=== PATIENT | male | born 1950 | race Caucasian/White ===

== ENCOUNTER 2017-03-15 05:49 | Inpatient (IN) | payer OTHER ==
[~2017-03-15 05:49] MED LIST: TRANEXAMIC ACID 1 MG in NS 100 ML IV ONE
[2017-03-15] MEDS ORDERED: ROPIVACAINE 0.2% 80 MG, EPINEPHrine 0.2 MG, KETOROLAC TROMETHAMINE 30 MG in SYRINGE 0 ML IU ONE (06:00)
[2017-03-15] MEDS ORDERED: POVIDONE-IODINE 20 ML in SODIUM CL IRRIG SOLUTION 500 ML IRR ONE (06:00)
[2017-03-15] MEDS ORDERED: TRANEXAMIC ACID 2,000 MG in NS 100 ML IV ONE (06:00)
[2017-03-15] MEDS ORDERED: ceFAZolin 2 GM/SWFI 2 GM/20 ML SYR IVP ONE (06:08)
[2017-03-15] MEDS ORDERED: ACETAMINOPHEN 325 MG TAB PO ONE (06:08)
[2017-03-15] MEDS ORDERED: FAMOTIDINE 20 MG TAB PO ONE (06:08)
[2017-03-15] MEDS ORDERED: DEXAMETHASONE 4 MG/ML VIAL IVP ONE (06:08)
[2017-03-15] MEDS ORDERED: LIDOCAINE 1% 2 ML INJ ONE (06:11)
[2017-03-15] MEDS ORDERED: LR 1,000 ML IV ONE (06:15)
[2017-03-15] MEDS ORDERED: LIDOCAINE 1% 2 ML INJ ID PRN (06:15)
[2017-03-15] MEDS ORDERED: ceFAZolin 1 GM/5 ML SYR ONE (06:16)
--- NOTE | 2017-03-15 06:51 | PDANEPAE ---
ANE History of Present Illness OA right hip for resurfacing ANE Past Medical History - Cardiovascular History Hx Hypertension: No Hx Arrhythmias: No Hx Chest Pain: No Hx Coronary Artery / Peripheral Vascular Disease: No Hx CHF / Valvular Disease: No Hx Palpitations: No - Pulmonary History Hx COPD: No Hx Asthma/Reactive Airway Disease: No Hx Recent Upper Respiratory Infection: No Hx Oxygen in Use at Home: No Hx Sleep Apnea: No Sleep Apnea Screening Result - Last Documented: Negative - Neurologic History Hx Cerebrovascular Accident: No Hx Seizures: No Hx Dementia: No - Endocrine History Hx Diabetes: No - Renal History Hx Renal Disorders: No - Liver History Hx Hepatic Disorders: No - Neurological & Psychiatric Hx Hx Neurological and Psychiatric Disorders: No - Cancer History Hx Cancer: Yes Cancer History Comment: skin cancer, red and blotchy - Congenital Disorder History Hx Congenital Disorders: No - GI History Hx Gastrointestinal Disorders: No - Other Health History Other Health History: none - Chronic Pain History Chronic Pain: No - Surgical History Prior Surgeries: left hip 1998, left knee 26yrs ago ANE Review of Systems Review of Systems: - Exercise capacity METS (RN): 6 METS ANE Patient History - Allergies Allergies/Adverse Reactions: rivaroxaban [From Xarelto] Allergy (Verified 02/15/17 13:23) Hematuria - Home Medications Home medications: home medication list seen and reviewed Home Medications: Acyclovir [Zovirax 400 mg (*)] 400 mg PO TID PRN 02/15/17 [Last Taken Unknown] Cephalexin [Keflex (*)] 1,000 mg PO DAILY PRN 02/15/17 [Last Taken Unknown] Herbals/Supplements -Info Only 1 ea PO DAILY 02/15/17 [Last Taken Unknown] - Smoking Hx Smoking Status: Never smoked - Family Anes Hx Family Hx Anesthesia Complications: none ANE Labs/Vital Signs - Vital Signs Height: 185.42 cm Weight: 96.162 kg ANE Physical Exam - Airway Neck exam: FROM Mallampati Score: Class 2 Mouth exam: normal dental/mouth exam - Pulmonary Pulmonary: no respiratory distress - Cardiovascular Cardiovascular: regular rate and rhythym - ASA Status ASA Status: II ANE Anesthesia Plan Anesthesia Plan: MAC, spinal
[2017-03-15] MEDS ORDERED: MIDAZOLAM 2 MG/2 ML VIAL IVP ONE (07:00)
[2017-03-15] MEDS ORDERED: MIDAZOLAM 2 MG/2 ML VIAL ONE (07:02)
[2017-03-15] MEDS ORDERED: PROPOFOL/EMULSION 500 MG/50 ML BOTTLE IV ONE ×2 (07:07→08:08)
[2017-03-15] MEDS ORDERED: LIDOCAINE 2% 5 ML SDV ONE (07:08)
[2017-03-15] MEDS ORDERED: fentaNYL 100 MCG/2 ML INJ IVP PRN (07:49)
[2017-03-15] MEDS ORDERED: HYDROmorphONE/DILAUDID 1 MG/ML INJ IVP PRN (07:49)
[2017-03-15] MEDS ORDERED: ONDANSETRON 4 MG/2 ML VIAL IVP PRN ×2 (07:49→09:25)
[2017-03-15] MEDS ORDERED: NALOXONE HCL 0.4 MG/ML INJ IVP PRN (07:49)
--- NOTE | 2017-03-15 09:13 | PDHPUP ---
History & Physical Update H&P update statement: This history and physical update is based on an assessment of the patient which was completed after admission or registration (within 24 hours), but prior to the surgery/procedure. H&P update: H&P reviewed & patient examined, no change in patient's condition since H&P completed
--- NOTE | 2017-03-15 09:15 | POSTOPPROG ---
Post Op Note Date of Operation: 03/15/17 Surgeon: Malick Groves Soap Maker: Lam Jara/Fermin Lr Anesthesiologist: Dr. Jesus Lutz Anesthesia: IV Sedation, Spinal Post-op Diagnosis: right hip advanced degenerative arthritis. Procedure: Right hip Blanche hip resurfacing a Inf/Abcess present in the surg proc area at time of surgery?: No EBL: [id number]
[2017-03-15] MEDS ORDERED: oxyCODONE IR 5 MG TAB PO PRN (09:25)
[2017-03-15] MEDS ORDERED: PROMETHAZINE HCL 25 MG/ML INJ IVP PRN (09:25)
[2017-03-15] MEDS ORDERED: traMADol 50 MG TAB PO PRN (09:25)
[2017-03-15] MEDS ORDERED: POLYETHYLENE GLYCOL 3350 17 GM PKT PO PRN (09:25)
[2017-03-15] MEDS ORDERED: LACTULOSE 20 GM/30 ML UDCUP PO PRN (09:25)
[2017-03-15] MEDS ORDERED: BISACODYL 10 MG SUPP PR PRN (09:25)
[2017-03-15] MEDS ORDERED: DIPHENOXYLATE/ATROPINE LOMOTIL 1 TAB PO PRN (09:25)
[2017-03-15] MEDS ORDERED: diphenhydrAMINE 25 MG CAP PO PRN (09:25)
[2017-03-15] MEDS ORDERED: PROMETHAZINE HCL 25 MG SUPPR PR PRN (09:25)
[2017-03-15] MEDS ORDERED: TEMAZEPAM 15 MG CAP PO PRN (09:25)
[2017-03-15] MEDS ORDERED: NS 500 ML IV PRN (09:25)
[2017-03-15] MEDS ORDERED: METOCLOPRAMIDE 10 MG/2 ML VIAL IVP PRN (09:25)
[2017-03-15] MEDS ORDERED: MAGNESIUM HYDROXIDE 30 ML UDCUP PO PRN (09:25)
[2017-03-15] MEDS ORDERED: ONDANSETRON DISINTEGRATING 4 MG TAB PO PRN (09:25)
[2017-03-15] MEDS ORDERED: CYCLOBENZAPRINE 10 MG TAB PO PRN (09:25)
--- NOTE | 2017-03-15 09:26 | POSTANESTH ---
Post Anesthetic Evaluation Cardiovascular Status: Normal, Stable Respiratory Status: Normal, Stable Level of Consciousness/Mental Status: Can Participate in Eval Pain Control: Adequate, Prn Tx Ordered Nausea/Vomiting Control: Adequate, Prn Tx Ordered Complications Possibly Related to Anesthesia: None Noted
[2017-03-15] MEDS ORDERED: LR 1,000 ML IV SCH (09:30)
[2017-03-15] MEDS: ACETAMINOPHEN 325 MG TAB PO SCH ×2 (11:55→18:04)
[2017-03-15] MEDS: TRANEXAMIC ACID 650 MG TAB PO SCH ×2 (11:56→20:34)
[2017-03-15] MEDS: ceFAZolin 2 GM/DEXTROSE 100 ML IV SCH ×2 (14:07→20:33)
[2017-03-15] MEDS: KETOROLAC 30 MG/1 ML SDV IVP PRN (18:06)
--- NOTE | 2017-03-15 18:56 | GOP ---
[f rep st] OPERATIVE REPORT DATE OF OPERATION: 03/15/2017 SURGEON: Malick Groves MD CLIENT SERVICES COORDINATOR: Lam Jara and Fermin Lr. ANESTHESIA: A combination of Marcaine, spinal, and IV sedation. ANESTHESIOLOGIST: Dr. Jesus Lutz. PREOPERATIVE DIAGNOSIS: Right hip severe degenerative arthritis. POSTOPERATIVE DIAGNOSIS: Right hip severe degenerative arthritis. PROCEDURE PERFORMED: A right hip Blanche hip resurfacing arthroplasty. FINDINGS: DESCRIPTION OF PROCEDURE: The patient was given 2 g of preoperative IV Ancef within 60 minutes of carreon rgery. He also received IV tranexamic acid at a dose of 20 mg/kg. He was placed on the operating ro om table and given spinal anesthesia with Marcaine by Dr. Lutz. He was then placed supine an d given IV sedation. A Deluca catheter was not used. He wore a compressive stocking and SCD on the n onoperative leg. He was rolled to the left lateral decubitus position. An axillary roll was used, a nd all pressure points were carefully padded. The position was secured with the pegboard table attac hment. I was careful to lock his pelvis in a vertical position. His perineum was isolated with plas tic adhesive drapes. His right hip and right lower extremity were prepped with ChloraPrep. They wer e draped free using sterile sheets, stockinette, and Ioban plastic adhesive drape. The World Health Organization time-out was performed to verify the correct patient identity and the c orrect surgical side and site. The Sheldahl time-out was also performed. I made a 7-inch straight oblique posterolateral hip skin incision. The subcutaneous tissues were sha rply divided, and hemostasis was obtained using electrocautery. The fascia fuentes was identified and s plit along the axis of its fibers. I then curved posteriorly and proximally, and split the fascia of the gluteus ismael and bluntly split the muscle fibers in line with their orientation. His sciatic nerve was identified and protected throughout the procedure. The Charnley self-retaining retractor was inserted. The external rotators and the posterior hip capsule were divided as separate layers at the base of the femoral neck, tagged, and reflected posteriorly. The gluteus ismael tendon was div ided and tagged in order to improve exposure and release tension on the sciatic nerve. His hip was dislocated posteriorly. I used a sizing gauge to check the diameter of the neck and conc luded that 52 mm was the proper head size. I performed a circumferential capsulotomy. I was able to retract the femoral head anteriorly and superiorly, and hold it out of place with appropriate retrac tors. The remnant of his damaged labrum was completely excised. His acetabulum was reamed sequentia lly up to 58 mm. I selected the Rogers Monoblock porous-coated acetabular component with an outs jess diameter of 58 mm. This was firmly impacted and was a very tight fit. I was careful to determin e proper inclination and anteversion. I used the transverse acetabular ligament and other acetabular bony landmarks to help me properly determine cup orientation. He had a small posterior-inferior ost eophyte which I removed with a rongeur. I was careful to leave a good lip of bone and capsule extend ing beyond the anterior-inferior lip of the metal cup. I then returned to preparation of the femoral head. Using appropriate jigs and guides, I inserted a guide pin in the femoral head and neck. I was careful to position it in such a way that there would be no notching of the neck. The large sterile metal goniometer was used to check the neck shaft angl e. I reamed over the guide pin and inserted the reaming guide. I then used the cylindrical reamer d own to the head and neck junction. This was followed by the flat reamer and the chamfer reamer. The head was sized for 52 mm. There was no impingement or damage to the neck. He had very good quality bone in his femoral head. I drilled a small hole in the lesser trochanter and inserted a suction ca nnula to create negative pressure in the medullary canal. Small holes were drilled on the flattened chamfer surfaces of the prepared head for cement anchors. The head was thoroughly cleaned with the pulsating lavage and carefully dried. I used a CarboJet dev ice to blow dry the cancellous surfaces. A single batch of Simplex cement with tobramycin was mixed. At about 50 seconds, I poured the liquid cement into the head component, inserted it onto the prepa red head, and impacted it into place. Excess cement was removed before it hardened. The acetabulum was irrigated, cleaned, and inspected, and the hip was reduced. Stability and range of motion were c hecked. I placed my finger along the anterior aspect of the acetabular component and flexed the hip to 110 degrees. There was no anterior impingement. The suction cannula on the lesser trochanter was removed. The wound was thoroughly irrigated 1 final time with a dilute Betadine solution. 40 mL of the joint anesthetic cocktail were injected into the capsule, the deep musculature, and subcutaneous tissues along the skin edges. His sciatic nerve was reinspected and looked unharmed. The external rotators and the posterior capsu le were repaired in separate layers with #2 FiberWire sutures through drill holes in the greater troc hanter. This provided a strong posterior capsular and external rotator repair. The gluteus ismael tendon was repaired with 2 interrupted [id number] #2 FiberWire sutures. The fascia fuentes was rep aired with 2 interrupted [id number] #2 FiberWire sutures followed by a running #2 barbed Ethicon Stratafix PDO suture. Subcutaneous tissues were closed with a running 0 barbed Ethicon Stratafix Mo noderm suture. The skin was closed with a running 3-0 barbed Ethicon Stratafix Monoderm subcuticular suture. The skin edges were reapproximated and sealed with Dermabond glue. The wound was covered w ith a strip of Telfa, and everything was held in place with a piece of clear plastic Tegaderm. The estimated blood loss was about 400 mL. I used a [employer] Rogers hip resurfacing system. The acetabular component was 58 mm in d iameter and press-fit. The femoral head was 52 mm and cemented. He was awakened from anesthesia and rolled to the supine position on his [facility]. A long-leg compressive stocking and SCD were applied to the operative leg. He wore a stocking and SCD on the opposite leg during the procedure. An abduction pillow was placed between his knees. He was taken to PACU in satisfactory condition. T here were no recognized intraoperative complications. The sponge and needle count were correct on 2 occasions. Lam Jara and Fermin Lr acted as surgical assistants. Their assistance was a medical necess ity for safe completion of the procedure. /[id number]/MODL
[2017-03-15] MEDS: FAMOTIDINE 20 MG TAB PO SCH (20:26)
[2017-03-15] MEDS: ASPIRIN 325 MG TAB PO SCH (20:33)
[2017-03-15] MEDS: SENNOSIDES/DOCUSATE SODIUM TAB PO SCH (20:33)
[2017-03-16] MEDS: TRANEXAMIC ACID 650 MG TAB PO SCH (00:52)
[2017-03-16] MEDS: ACETAMINOPHEN 325 MG TAB PO SCH ×2 (00:52→06:23)
[2017-03-16 05:07] LABS: HEMATOCRIT 38.6 % (40.0-51.0); HEMOGLOBIN 13.3 g/dL (13.7-17.5)
[2017-03-16] MEDS: KETOROLAC 30 MG/1 ML SDV IVP PRN (06:22)
[2017-03-16 08:44] VITALS: BP 129/70; PULSE 56; RESP 12; TEMP 96.8; O2SAT 94
[2017-03-16] MEDS: FAMOTIDINE 20 MG TAB PO SCH (08:49)
[2017-03-16] MEDS: ASPIRIN 325 MG TAB PO SCH (08:49)
[2017-03-16] MEDS: SENNOSIDES/DOCUSATE SODIUM TAB PO SCH (08:50)
[2017-03-16] MEDS ORDERED: FERROUS SULFATE 140 MG TAB.ER PO SCH (09:00)
--- NOTE | 2017-03-16 09:37 | SOAPPROG ---
SOAP Progress Note Assessment/Plan: Assessment: Afebrile. Mild pain. Up and walking in the vela. He has already done stairs. His dressing is dry. H&H are good. Sciatic nerve intact. Postop x-rays look excellent. Plan: Physical therapy today. Discharge later today. 03/16/17 09:36 Objective: Vital Signs Temp Pulse Resp BP Pulse Ox 36.0 C 56 L 12 129/70 H 94 03/16/17 08:00 03/16/17 08:00 03/16/17 08:00 03/16/17 08:00 03/16/17 08:00 Laboratory Results 03/16/17 04:10 03/15/17 03/16/17 03/17/17 05:59 05:59 05:59 Intake Total 2600 Output Total 400 Balance 2200 ICD10 Worksheet Patient Problems: Problems Problem Status Onset Osteoarthritis of right hip Acute
--- NOTE | 2017-03-16 12:21 | ASDISCHSUM ---
Discharge Information Plan Status:Home with No Needs Medically Cleared to Leave: Discharge Date:03/16/2017 11:33 AM CM D/C Disposition:Home, Routine, Self-Care ADT D/C Disposition:Home, Routine, Self-Care Projected Discharge Date:03/16/2017 11:33 AM Transportation at D/C: Discharge Delay Reason: Follow-Up Date:03/16/2017 11:33 AM Discharge Slot: Final Diagnosis: Placement Information Patient Contact Information Contact Name:BISI Relationship: Address:[address] [place] Alternate Phone: [facility]/Zip Code:[place] [address] Email: Financial Information Financial Class:HMO and PPO Plans Primary Plan Desc:[facility] PPO POS Primary Plan Number:[id number] Secondary Plan Desc: Secondary Plan Number: Assessment Information [facility] CM Progress Note CM Note CM Note Notes: Pt medically stable for d/c, no CM d/c needs identified Date Signed: 03/16/2017 12:20 PM Electronically Signed By:TAMEKA Lees Intervention Information
--- NOTE | 2017-03-16 15:45 | GDS ---
[f rep st] DISCHARGE SUMMARY ADMISSION DIAGNOSIS: Right hip degenerative arthritis. DISCHARGE DIAGNOSIS: Right hip degenerative arthritis. OPERATION PERFORMED: 03/15/2017, right hip Blanche hip resurfacing arthroplasty. POSTOPERATIVE COMPLICATIONS: None. CONDITION ON DISCHARGE: Improved. DESCRIPTION OF HOSPITAL COURSE: The patient was admitted to the hospital on the morning of surgery. His admission CBC was normal except for a platelet count of 121,000. The same day, under a combinat ion of Marcaine, spinal, and IV sedation, he underwent a right hip Blanche hip resurfacing arthrop lasty. On the first postoperative day, his hemoglobin and hematocrit were 13.3 and 38.6. He was ann ated with multimodal DVT prophylaxis, including aspirin. He was seen by Physical Therapy and made ex cellent progress. By the time of discharge, he was afebrile, his wound was clean and dry, and he was independent walking with crutches. DISPOSITION: The patient discharged to his home in [place]. Continue aspirin 325 mg p.o. d aily for 21 days. He has prescriptions for oxycodone and tramadol for pain control. He may progress to full weightbearing on the right as tolerated. Use an abduction pillow in bed for 3 weeks. I ilya l see him back in the office on April 01, 2017. If there are any problems, he is to call me at [facility] office. He does not have a primary care doctor. /[id number]/MODL
== END 2017-03-16 11:33 | disposition home or self-care (01) | DRG 470 ==
LOC: F3N 05:49
PROVIDERS: ADMIT Orthopaedic Surgery; ATTEND Orthopaedic Surgery
PROC: 0SU90BZ Supplement Right Hip Joint with Resurfacing Device, Open Approach (ICD-10-PCS; principal; 2017-03-15 07:15)
DX: M16.11 Unilateral primary osteoarthritis, right hip (principal)
CPT/HCPCS: 97116-GP; 97161-GP; 97165-GO; C1713; J0171; J0690; J1100; J1885; J2250; J2704; J2795